=== PATIENT | female | born 1970 | race Caucasian/White ===

== ENCOUNTER → 2017-12-19 | Outpatient (CLI) | payer MEDICARE, OTHER ==
--- NOTE | 2017-12-23 22:35 | MR ---
EXAMINATION TYPE: MR brain wo/w con DATE OF EXAM: 12/19/2017 COMPARISON: 08/08/2011 [facility] HISTORY: Essential tremor CONTRAST: Performed utilizing 10 mL intravenous Gadavist gadolinium contrast. TECHNIQUE: Multiplanar, multiecho imaging on a 3.0 Meggan magnet is performed through the brain. Stud y is performed within 24 hours of arrival to the hospital. The craniovertebral junction is normal. The pituitary is normal. Diffusion-weighted imaging is performed. No abnormal hyperintensity is present to suggest an acute i ntracranial infarct or acute ischemic change. There is some subtle increased signal along the right posterior falx. No significant enhancement is p resent. This has some increased signal on T1-weighted sequences along the periphery, series 201 image 10. The fat signal appears diminished. This area appears largely hypodense such as on diffusion and T2-weighted sequences. This measures 1.3 AP by 0.6 cm transverse, which is stable in size. This was p resent in 2011 and appears stable in size. Lipoma is favored within the differential. Maturing mening ioma is considered less likely. No new masses are identified. There is some motion artifact present. Suspicious signal changes not ot herwise identified Ventricles and sulci are appropriate for the patient age. IMPRESSIONS: 1. 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 2. No significant interval changes evident.
== END | disposition home or self-care (01) ==
LOC: RADMRIMAIN 12:42
PROVIDERS: ATTEND Psychiatry & Neurology Neurology
DX: G25.0 Essential tremor (principal); Z88.1 Allergy status to other antibiotic agents
CPT/HCPCS: 70553; A9585

== ENCOUNTER → 2018-01-01 | Outpatient (CLI) | payer MEDICARE, OTHER ==
--- NOTE | 2018-01-01 09:38 | US ---
EXAMINATION TYPE: US carotid duplex BILAT DATE OF EXAM: 01/01/2018 COMPARISON: NONE CLINICAL HISTORY: I63.9 Cerebral infarction / G25.0 Essential tremor. EXAM MEASUREMENTS: RIGHT: Peak Systolic Velocity (PSV) cm/sec ----- Right CCA: 113.2 ----- Right ICA: 80.3 ----- Right ECA: 75.6 ICA/CCA ratio: 0.7 RIGHT: End Diastole cm/sec ----- Right CCA: 21.0 ----- Right ICA: 22.2 ----- Right ECA: 11.7 LEFT: Peak Systolic Velocity (PSV) cm/sec ----- Left CCA: 110.9 ----- Left ICA: 99.6 ----- Left ECA: 54.6 ICA/CCA ratio: 0.9 LEFT: End Diastole cm/sec ----- Left CCA: 18.9 ----- Left ICA: 31.7 ----- Left ECA: 6.6 VERTEBRALS (direction of flow): Right Vertebral: Antegrade Left Vertebral: Antegrade Rhythm: Normal No elevated velocities, no significant stenosis identified. Only a very short segment of left ICA is visible, the vessel dives deep and the bifurcation is high behind patient's ear. No plaque seen. IMPRESSION: Limited exam due to suboptimal visualization of the ICA on the left demonstrates no defi nite significant hemodynamic stenosis or plaque formation as visualized. Criteria for Assigning % of Stenosis / Diameter reduction (Estimation based on the indirect measurements of the internal carotid artery velocities (ICA PSV). 1. Normal (no stenosis)=ICA PSV < 125 cm/s: ratio < 2.0: ICA EDV<40 cm/s. 2. Less than 50% stenosis=ICA PSV < 125 cm/s: ratio < 2.0: ICA EDV<40 cm/s. 3. 50 to 69% stenosis=ICA PSV of 125 to 230 cm/s: ration 2.0 ? 4.0: ICA EDV 40-100 cm/s. 4. Greater than 70% stenosis to near occlusion= ICA PSV > 230 cm/s: ratio > 4.0: ICA EDV > 100 cm/s. 5. Near occlusion= ICA PSV velocities may be low or undetectable: variable ratio and ICA EDV. 6. Total occlusion=unable to detect flow.
--- NOTE | 2018-01-03 11:42 | NM ---
EXAMINATION TYPE: NM DatScan Brain SPECT DATE OF EXAM: 01/01/2018 COMPARISON: NONE HISTORY: Essential tremor TECHNIQUE: 10 drops of Lugol's solution was administered 1 hour prior to injection as a thyroid bloc britton agent. After the administration of 4.73 mCi I-123 Ioflupane DaTscan. Images obtained 3 hours p ost injection. SPECT images of the brain were acquired with axial and coronal reconstructions. FINDINGS: The axial SPECT images demonstrate increased background activity and reduced activity withi n the bilateral striata. IMPRESSION: Abnormal appearance suggestive of idiopathic Parkinson's disease or Parkinsonian syndrome .
== END | disposition home or self-care (01) ==
LOC: RADUSMAIN 08:45
PROVIDERS: ATTEND Psychiatry & Neurology Neurology
DX: I63.9 Cerebral infarction, unspecified (principal); R94.02 Abnormal brain scan; G25.0 Essential tremor
CPT/HCPCS: 93880; 78607; A9584

== ENCOUNTER → 2018-05-21 | Outpatient (CLI) | payer MEDICARE, OTHER ==
--- NOTE | 2018-05-21 19:10 | CONS ---
CONSULTATION This is a 47-year-old female patient who was referred to me for sleep disturbance. Initially the patient was having some insomnia, and for that reason she was referred to me. Apparently she was having some difficulty initiating and maintaining sleep. The patient suffered an anoxic [employer] injury at the age of 18 months. As such, the patient is neurocognitively impaired. She also suffered 2 CVAs when she had some left-sided weakness, from which she is recovering, and she is undergoing aggressive physical therapy. She has been diagnosed as having early stages of Parkinson's and is currently on a combination of aspirin and carbidopa. The patient for now is able to generate and maintain sleep. Her sleep quality is improved since this appointment was made. She is going to bed around 10 p.m., waking up between 6 and 7 a.m. in the morning, averaging around 7-8 hours of sleep without any major difficulties. No snoring. She does not wake up in the middle of the night. No issues with nocturia or choking or gasping for air. No issues with grinding of the teeth. No sleepwalking or sleeptalking. No restlessness in the lower extremities. No aggressive or any unusual behavior during sleep. Her weight has been stable. Clemson score is only 1. She does not take any naps during the day. No history of any head trauma. No chronic pain. No nocturnal heartburn. No nocturnal chest pain or shortness of breath. PAST MEDICAL HISTORY: 1. Anoxic [employer] injury at the age of 19. 2. CVA x2 with residual left-sided weakness. 3. Parkinson's disease. SURGICAL HISTORY: None. DRUG ALLERGIES: NOT KNOWN. The patient has seasonal allergies. OUTPATIENT MEDICATIONS: Include aspirin and carbidopa. SOCIAL HISTORY: Nonsmoker. No history of alcoholism. No history of IV drugs. FAMILY HISTORY: Parents are both healthy. REVIEW OF SYSTEMS: Fourteen-point review of systems was done. Positive findings were all mentioned above in the history of present illness. The patient herself is a poor historian, as the patient has neurocognitive impairment. She is wearing a brace on the left lower extremity to help her with walking and mobility. No cough. No sputum production. No chest pain. No palpitation. No grinding of the teeth. No anxiety or panic attacks. No depression. She is interactive. She is able to swallow food without any major difficulties. Intellect and cognitive functions are affected because of her previous history of anoxic encephalopathy. PHYSICAL EXAMINATION: BP is 127/69, pulse 95, respirations 16, temperature 97.5. Weight is 216. Height is 5 feet 7 inches, BMI 33.2. Clemson score is 1. Neck size 15-1/3 inches. Saturation 99% on room air. GENERAL APPEARANCE: Calm, comfortable. Head is atraumatic, normocephalic. NECK: Supple. No JVD. No goiter or neck masses. Mallampati Class I. LUNGS: Clear to auscultation. Heart sounds are regular rate and rhythm. Normal S1, S2. No S3, S4. No murmurs. ABDOMEN: Soft, nontender. No organomegaly. EXTREMITIES: No edema. No cyanosis or clubbing. IMPRESSION: 1. Normal sleep pattern. The patient encountered brief insomnia several months back and she is back to her normal sleep schedule without having any major hypersomnia or sleepiness during the day. She is able to initiate and maintain sleep, averaging around 7-8 hours of sleep without any major difficulties. 2. Cerebrovascular accident x2 with left-sided weakness. 3. Parkinson's disease. 4. 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 5. Obesity with a body mass index of 33.2. PLAN: 1. Encourage weight loss. 2. Discussed issues related to sleep hygiene. The patient has a TV in her bedroom that may need to be eliminated. She is not taking any form of caffeinated beverages or stimulants in the afternoon or early in the evening. Will encourage daily walking and exercise and physical therapy. All of these sleep hygiene issues were discussed with her at length. No need for a sleep study, as the patient is able to initiate and maintain sleep for the time being without any major difficulties. Continue following up with Neurology. See me on an as-needed basis. No need for a sleep study at this point in time. MMODL / IJN: [id number] /
== END | disposition home or self-care (01) ==
LOC: SLEEP 15:05
PROVIDERS: ATTEND Internal Medicine Critical Care Medicine
DX: G20 Parkinson's disease (principal); E66.9 Obesity, unspecified; Z68.33 Body mass index [BMI] 33.0-33.9, adult; Z86.73 Personal history of transient ischemic attack (TIA), and cerebral infarction without residual deficits; Z86.69 Personal history of other diseases of the nervous system and sense organs; Z79.82 Long term (current) use of aspirin; Z79.899 Other long term (current) drug therapy
CPT/HCPCS: 99211

== ENCOUNTER → 2019-10-23 | Outpatient (CLI) | payer MEDICARE, OTHER ==
--- NOTE | 2019-10-23 10:32 | CT ---
EXAMINATION TYPE: CT brain wo/w con DATE OF EXAM: 10/23/2019 COMPARISON: None HISTORY: Parkinsons"s Disease CT DLP: 3409mGycm CONTRAST: CT scan of the head is performed without and with IV Contrast, patient injected with 100 mL of Isovue 300. Unenhanced followed by contrast enhanced CT of the brain is submitted for evaluation. The ventricles are midline. There is no evidence for intracranial hemorrhage or extra-axial collection. No mass e ffects are identified. Visualized bony calvarium is intact. Contrast is administered and no enhanci ng lesions are detected. No pathologic enhancement is identified. If symptoms persist consider MRI. IMPRESSION: No distinct abnormality is appreciated at this time.
== END | disposition home or self-care (01) ==
LOC: RADCTMAIN 09:32
PROVIDERS: ATTEND Psychiatry & Neurology Neurology
DX: I63.9 Cerebral infarction, unspecified (principal); G20 Parkinson's disease
CPT/HCPCS: 70470; Q9967

== ENCOUNTER 2021-02-02 20:42 | Emergency (ER) | payer MEDICARE, OTHER ==
[2021-02-02] MEDS ORDERED: MORPHINE SULFATE 4 MG/ML SYRINGE IM STA (20:54)
[2021-02-02 21:06] VITALS: BP 105/72; PULSE 82; RESP 18; TEMP 98.6
--- NOTE | 2021-02-02 21:46 | CT ---
EXAMINATION TYPE: CT brain cspine wo con, CT facial bones wo con DATE OF EXAM: 02/02/2021 COMPARISON: 10/23/2019 HISTORY: Pain, facial trauma from fall (accession [id number]), Pain, facial trauma from fall (accession [id number]) CT DLP: 1262.4 mGycm Automated exposure control for dose reduction was used. TECHNIQUE: CT scan of the head and cervical spine are performed without contrast. CT of the facial bones without contrast. FINDINGS: CT head: There is no acute intracranial hemorrhage, mass effect, or midline shift identified. The ve ntricles and sulci are within normal limits in size. The globes are intact and the visualized sinuse s are clear. CT cervical spine: Cervical spine is visualized in its entirety from C1 through upper thoracic levels and demonstrates satisfactory alignment without evidence of acute fracture or dislocation. There is moderate C5-C6 spondylosis. Prevertebral soft tissue appears within normal limits. The C1-C2 articul ation is unremarkable. CT facial bones: There is mildly comminuted and displaced fracture of the nasal bones. There is overl little mild soft tissue edema. There is mild opacification of the paranasal sinuses. The zygomatic arch , bilateral orbits, pterygoid plates and mandibles are intact. IMPRESSION: Nasal bone fracture. Otherwise no acute intracranial or cervical spine abnormality.
--- NOTE | 2021-02-02 21:52 | ED ---
Fall HPI - General Chief Complaint: Fall Stated Complaint: fall Time Seen by Provider: 02/02/21 20:52 Source: patient, EMS, RN notes reviewed Mode of arrival: EMS - History of Present Illness Initial Comments: Patient is a 50-year-old female that presents to the emergency department with a fall and hitting her face at facility. She is from [facility]. Patient does not take blood thinners. She does have a history of dementia. She is a very poor historian. She noted that her pain was a 10 out of 10 with no relief. She denied any other issues or complaints. She denied chest pain shortness of breath headache nausea vomiting diarrhea constipation fever fatigue chills. - Related Data Home Medications Medication Instructions Recorded Confirmed Aspirin EC [Ecotrin Low Dose] 81 mg PO DAILY 02/02/21 02/02/21 Carbidopa-Levodopa 10-100 mg 1 tab PO TID@1300,1900,2300 02/02/21 02/02/21 [Sinemet 10-100] Carbidopa-Levodopa 25-250 mg 1 tab PO QID@07,13,19,23 02/02/21 02/02/21 [Sinemet 25-250] Cholecalciferol [Vitamin D3 (25 50 mcg PO DAILY 02/02/21 02/02/21 Mcg = 1000 Iu)] Docusate [Colace] 100 mg PO BID 02/02/21 02/02/21 Memantine [Namenda] 10 mg PO BID 02/02/21 02/02/21 Sertraline [Zoloft] 75 mg PO DAILY 02/02/21 02/02/21 Allergies Allergy/AdvReac Type Severity Reaction Status Date / Time No Known Allergies Allergy Verified 02/02/21 21:39 Review of Systems ROS Statement: Those systems with pertinent positive or pertinent negative responses have been documented in the HPI. ROS Other: All systems not noted in ROS Statement are negative. Past Medical History Past Medical History: CVA/TIA, Dementia Additional Past Medical History / Comment(s): Parkinson's disease, left side weakness from CVA History of Any Multi-Drug Resistant Organisms: None Reported Past Surgical History: No Surgical Hx Reported Past Psychological History: No Psychological Hx Reported Smoking Status: Never smoker Past Alcohol Use History: None Reported Past Drug Use History: None Reported General Exam Limitations: no limitations General appearance: alert, in no apparent distress Head exam: Present: normocephalic, normal inspection. Absent: atraumatic (Swelling and ecchymosis around the nose) Eye exam: Present: normal appearance, PERRL, EOMI. Absent: scleral icterus, conjunctival injection, periorbital swelling ENT exam: Present: normal exam, mucous membranes moist Neck exam: Present: normal inspection Respiratory exam: Present: normal lung sounds bilaterally. Absent: respiratory distress, wheezes, rales, rhonchi, stridor Cardiovascular Exam: Present: regular rate, normal rhythm, normal heart sounds. Absent: systolic murmur, diastolic murmur, rubs, gallop, clicks GI/Abdominal exam: Present: soft, normal bowel sounds. Absent: distended, tenderness, guarding, rebound, rigid Extremities exam: Present: normal inspection, full ROM, normal capillary refill. Absent: tenderness, pedal edema, joint swelling, calf tenderness Neurological exam: Present: alert, oriented X3 Psychiatric exam: Present: normal affect, normal mood Skin exam: Present: warm, dry, intact, normal color. Absent: rash Course Vital Signs 02/02/21 20:54 Temperature 98.6 F Pulse Rate 82 Respiratory 18 Rate Blood Pressure 105/72 O2 Sat by Pulse 95 Oximetry Medical Decision Making - Medical Decision Making 50-year-old female with facial injury from falling. CT of the brain and C-spine and facial bones ordered. 4 mg of morphine ordered. Computed tomography scan shows a nasal bone fracture with no other acute abnormalities. Patient is okay to go back to facility. Case discussed with Dr. Mack, patient can discharge home. - Radiology Data Radiology results: report reviewed, image reviewed CT of the brain and C-spine and facial bones: Nasal bone fracture. Otherwise no acute intracranial or cervical spine or abnormality. Disposition Clinical Impression: Fall, Nasal bone fracture Disposition: HOME SELF-CARE Condition: Stable Instructions (If sedation given, give patient instructions): Fall Prevention (ED), Nasal Fracture (ED) Additional Instructions: Please return to the Emergency Department if symptoms worsen or any other concerns. Follow-up with primary care 1-2 days. Take pain medication at facility as prescribed. Is patient prescribed a controlled substance at d/c from ED?: No Referrals: James Grey DO [Primary Care Provider] - 1-2 days Time of Disposition: 21:52
== END 2021-02-02 23:15 | disposition home or self-care (01) ==
LOC: EC 20:42
DX: S02.2XXA Fracture of nasal bones, initial encounter for closed fracture (principal); Z86.73 Personal history of transient ischemic attack (TIA), and cerebral infarction without residual deficits; Z79.82 Long term (current) use of aspirin; W01.198A Fall on same level from slipping, tripping and stumbling with subsequent striking against other object, initial encounter; Y92.129 Unspecified place in nursing home as the place of occurrence of the external cause
CPT/HCPCS: 72125; 70486; 70450; 99284; 96372; J2270